=== PATIENT | male | born 1955 | race Caucasian/White ===

== ENCOUNTER 2017-08-21 05:17 | Day surgery (SDC) | payer MEDICARE, MEDICAID ==
[2017-08-21 06:56] LABS: POTASSIUM 4.7 mmol/L (3.5-5.1)
[2017-08-21] MEDS ORDERED: LIDOCAINE 1% (MDV) 20 ML INJ (07:02)
[2017-08-21] MEDS ORDERED: IODIXANOL LOCM 100 ML BTL ×2 (07:03→08:15)
[2017-08-21] MEDS ORDERED: MIDAZOLAM 1 MG/ML 2 ML INJ (07:32)
[2017-08-21] MEDS ORDERED: FENTAnyl 50 MCG/ML VIAL (07:33)
[2017-08-21] MEDS ORDERED: HEPARIN 1000 UNITS/ML 10 ML INJ (08:01)
== END 2017-08-21 09:40 | disposition home or self-care (01) ==
LOC: SDS 05:17
DX: T82.858A Stenosis of other vascular prosthetic devices, implants and grafts, initial encounter (principal); Y84.8 Other medical procedures as the cause of abnormal reaction of the patient, or of later complication, without mention of misadventure at the time of the procedure; I12.0 Hypertensive chronic kidney disease with stage 5 chronic kidney disease or end stage renal disease; N18.6 End stage renal disease
CPT/HCPCS: 36901; 36907; 82962; 84132